=== PATIENT | male | born 1940 | race Hispanic/Latino ===

== ENCOUNTER 2019-07-20 20:47 | Inpatient (IN) | payer MEDICARE ==
[~2019-07-20 20:47] MED LIST: Iopamidol-370 76% 500 ML 1 ML ONE
[2019-07-20 21:09] LABS: #Basophils 0.1 thou/uL (0.0-0.2); #Eosinphils 0.2 thou/uL (0.0-0.7); #Lymphocytes 2.1 thou/uL (1.20-3.40); #Monocytes 0.6 thou/uL (0.11-0.59); %Basophils 0.6 % (0.0-1.0); %Eosinophils 1.8 % (0.0-10.0); %Lymphocytes 23.3 % (21.0-51.0); %Monocytes 7.1 % (0.0-10.0); %Neutrophils 67.2 % (42.0-75.0); Hemoglobin 15.7 g/dL (14.0-18.0); Mean Corpuscular HGB CONC 34.4 g/dL (32.0-36.0); Mean Corpuscular Hemoglobin 33.3 pg (27.0-31.0); Mean Corpuscular Volume 96.8 fL (78.0-98.0); Platelet Count 166 thou/uL (130-400); RBC Distribution Width 11.7 % (11.5-14.5); White Blood Cell (WBC) Count 8.9 thou/uL (4.8-10.8)
[2019-07-20 21:30] LABS: ALT (SGPT) 16 U/L (8-55); AST (SGOT) 14 U/L (5-34); Albumin 3.8 g/dL (3.4-4.8); Alkaline Phosphatase 82 U/L (40-110); Anion Gap 14 mmol/L (10-20); BUN (Urea Nitrogen) 17 mg/dL (8.4-25.7); Bilirubin, Total 0.5 mg/dL (0.2-1.2); Calc. Creatinine Clearance 0 mL/min (70-130); Calcium 9.4 mg/dL (7.8-10.44); Carbon Dioxide 22 mmol/L (23-31); Chloride 102 mmol/L (98-107); Estimated GFR-MDRD 52; Globulin 3.5 g/dL (2.4-3.5); Glucose 318 mg/dL (83-110); Potassium 3.8 mmol/L (3.5-5.1); Protein, Total 7.3 g/dL (5.8-8.1); Sodium 134 mmol/L (136-145)
--- NOTE | 2019-07-20 21:37 | CT ---
CT OF THE BRAIN WITHOUT CONTRAST: 07/20/19 HISTORY: Right sided facial droop and weakness. COMPARISON: None. FINDINGS: No acute hemorrhage or infarct. No midline shift or mass effect. Ventricular size and extra-axial CSF spaces are normal. The calvarium is intact. The paranasal sinuses and mastoids are clear. IMPRESSION: No acute intracranial abnormality. Code: JOSELINE Cho at 8:57 p.m. POS: HOME
[2019-07-20] MEDS ORDERED: Aspirin Chewable 81 MG TAB ONE (22:52)
[2019-07-20] MEDS ORDERED: Labetalol HCl 100 MG/20 ML VIAL SLOW IVP PRN (23:46)
[2019-07-20] MEDS ORDERED: hydrALAZINE 20 MG/ML VIAL SLOW IVP PRN (23:46)
--- NOTE | 2019-07-20 23:51 | PDOC.HHP ---
Hospitalist HPI - History of Present Illness R sided tongue, arm, leg weakness, facial droop History of Present Illness: Patient is a 79 year old male with PMH HTN, DM who presents to ED for R sided facial droop and tongue numbness and weakness as well as R sided weakness in arm and leg. Family called EMS for r sided facial droop and weakness R sided and abnormal gate. last normal around 1300 per ED physician, out of tPA window. history of HTN and DM and PCN allergy. glucose noted abnormal in 300s. BP elevated, 218/120 and improved to 208/118 after given NTG. Stroke protocol activated, CT head without acute findings, given 325 ASA, patient to be admitted for ischemic stroke workup Hospitalist ROS - Review of Systems Constitutional: denies: fever, chills, sweats, weakness, malaise, other Eyes: denies: pain, vision change, conjunctivae inflammation, eyelid inflammation, redness, other ENT: denies: ear pain, ear discharge, nose pain, nose discharge, nose congestion , mouth pain, mouth swelling, throat pain, throat swelling, other Respiratory: denies: cough, dry, shortness of breath, hemoptysis, SOB with excertion, pleuritic pain, sputum, wheezing, other Cardiovascular: denies: chest pain, palpitations, orthopnea, paroxysmal noc. dyspnea, edema, light headedness, other Gastrointestinal: denies: nausea, vomiting, abdominal pain, diarrhea, constipation, melena, hematochezia, other Genitourinary: denies: dysuria, frequency, incontinence, hematuria, retention, other Musculoskeletal: denies: neck pain, shoulder pain, arm pain, back pain, hand pain, leg pain, foot pain, other Skin: denies: rash, lesions, luis, bruising, other Neurological: reports: weakness, numbness, incoordination, change in speech. denies: confusion, seizures All other systems reviewed; all pertinent +/- noted in HPI/Subj Hospitalist History - Past Medical History Other Medical History: DM, HTN - Past Surgical History Past Surgical History: reports: no pertinent history - Family History Family History: reports: cerebrovascular accident - Social History Alcohol: reports: None Drugs: reports: none - Exam General Appearance: NAD, awake alert Eye: PERRL, anicteric sclera ENT: normocephalic atraumatic, no oropharyngeal lesions, moist mucosa Neck: supple, symmetric, no JVD, no thyromegaly, no lymphadenopathy, no carotid bruit Heart: RRR, no murmur, no gallops, no rubs, normal peripheral pulses Respiratory: CTAB, no wheezes, no rales, no ronchi, normal chest expansion, no tachypnea, normal percussion Gastrointestinal: soft, non-tender, non-distended, normal bowel sounds, no palpable masses, no hepatomegaly, no splenomegaly, no bruit Extremities: no cyanosis, no clubbing, no edema Skin: normal turgor, no lesions, no rashes Neurological: facial droop Neurological - other findings: R sided facial droop, arm/lock plater weakness, leg weakness, sensation preserved Musculoskeletal: normal tone, normal strength, no muscle wasting Psychiatric: normal affect, normal behavior, A&O x 3 Hospitalist Results - Labs Result Diagrams: 07/20/19 20:54 07/20/19 20:54 Lab results: WBC 8.9 thou/uL (4.8-10.8) 07/20/19 20:54 Hgb 15.7 g/dL (14.0-18.0) 07/20/19 20:54 Hct 45.5 % (42.0-52.0) 07/20/19 20:54 MCV 96.8 fL (78.0-98.0) 07/20/19 20:54 Plt Count 166 thou/uL (130-400) 07/20/19 20:54 Neutrophils % 67.2 % (42.0-75.0) 07/20/19 20:54 Sodium 134 mmol/L (136-145) L 07/20/19 20:54 Potassium 3.8 mmol/L (3.5-5.1) 07/20/19 20:54 Chloride 102 mmol/L (98-107) 07/20/19 20:54 Carbon Dioxide 22 mmol/L (23-31) L 07/20/19 20:54 BUN 17 mg/dL (8.4-25.7) 07/20/19 20:54 Creatinine 1.33 mg/dL (0.7-1.3) H 07/20/19 20:54 Glucose 318 mg/dL (83-110) H 07/20/19 20:54 Calcium 9.4 mg/dL (7.8-10.44) 07/20/19 20:54 Total Bilirubin 0.5 mg/dL (0.2-1.2) 07/20/19 20:54 AST 14 U/L (5-34) 07/20/19 20:54 ALT 16 U/L (8-55) 07/20/19 20:54 Alkaline Phosphatase 82 U/L (40-110) 07/20/19 20:54 Troponin I 0.023 ng/mL (< 0.028) 07/20/19 20:54 Serum Total Protein 7.3 g/dL (5.8-8.1) 07/20/19 20:54 Albumin 3.8 g/dL (3.4-4.8) 07/20/19 20:54 Additional comment: CXR. CTA results pending Ct head results reviewed VITAL SIGNS ThuJuly 20, 2019 23:38 RISSA Yeh, [facility] BP: 151/91 MAP: 111 Pulse: 65 Resp: 18 Temp: 98.5 (Oral) Pain: 0 O2 sat: 97 on (Room Air) Time: 07/20/2019 23:38. - EKG Interpretation EKG: NSR [address] changes Hospitalist H&P A/P - Plan Plan: Patient is a 79 year old male with PMH HTN, DM who presents to ED for R sided facial droop and tongue numbness and weakness as well as R sided weakness in arm and leg. # R sided facial droop and tongue numbness and weakness as well as R sided weakness in arm and leg - admit to stroke floor with telemetry, monitor for atrial fibrillation - CT results reviewed, follow final CTA recommendations, prelimary per ED normal , MRI brain and echo ordered - ASA, statin - lipid panel, labs in AM - consult neurology, stroke team # DM w/ hyperglycemia - SSI ordered, A1C in AM # HTN - permissive HTN ordered for now # hyponatremia, LISA - mild, follow repeat in AM consider nephrology consult if worsening # DVT, GI ppx
[2019-07-21 01:18] VITALS: BMI 29.7
[2019-07-21 05:07] LABS: Prothrombin Time 12.9 sec (12.0-14.7)
[2019-07-21 05:23] LABS: Cardiac Risk 3.8 (Less than 4.5)
[2019-07-21] MEDS: Insulin Regular 300 UNITS/3 ML VIAL SC PRN ×4 (06:03→21:25)
--- NOTE | 2019-07-21 08:33 | RAD ---
CHEST 1 VIEW: INDICATION: History of stroke alert. COMPARISON: None. FINDINGS: There is a small left pleural effusion. Right lung is clear. Heart size is normal. No pneumothorax is evident. No acute osseous abnormality is evident. IMPRESSION: Tiny left pleural effusion. Recommend continued radiographic followup. POS: BH
[2019-07-21] MEDS: Enoxaparin Sodium 40 MG/0.4 ML SYRINGE SC SCH (08:50)
[2019-07-21] MEDS: Aspirin 81 mg Enteric Coated Tablet PO SCH (08:50)
[2019-07-21] MEDS ORDERED: Prevnar 13-Val Conj/PF 0.5 ML SYRINGE IM ONE (09:00)
--- NOTE | 2019-07-21 10:42 | CT ---
CT ANGIOGRAM OF THE HEAD WITH CONTRAST CT ANGIOGRAN NECK WITH CONTRAST: HISTORY: Facial droop and weakness. COMPARISON: Reference is made to a CT of the brain of the same day. FINDINGS: CT angiogram of the head and neck was performed after the intravenous administration of contrast. Th ree-D rendering was provided. The lung apices are clear. The cervical spine alignment is without acute fracture. Moderate degener ative changes. No cervical adenopathy. VESSELS: RIGHT SIDE: The right vertebral artery is patent. The common carotid artery is patent. There is a focal 60% ridge nosis of the proximal right internal carotid artery for a length of 3 mm with adequate distal periphe ral flow. LEFT SIDE: The left vertebral artery is patent. Left common carotid artery is patent. No hemodynamically signi ficant stenosis of the left internal carotid artery per NASCET criteria. The internal carotid arteries are mildly tortuous indicating chronic hypertension. The basilar artery is patent. The [place] is patent without hemodynamically significant ridge nosis, thrombosis, nor aneurysm formation. IMPRESSION: 1. Intact [place] without hemodynamically significant stenosis, thrombosis, nor aneurysm fo rmation. 2. Focal 60% narrowing of proximal right internal carotid artery for a length of 2 mm with adequate peripheral vascular flow. Dr. Cho notified of the findings via telephone at 10:09 p.m. CODE CR POS: HOME
--- NOTE | 2019-07-21 11:30 | MRI ---
MRI BRAIN WITHOUT CONTRAST: HISTORY: Right-sided facial droop and weakness. FINDINGS: Correlation is made with the previous day's CT scan. There is a focal area of restricted diffusion in the left side of the niall with mild T2 prolongation. No hemorrhage, midline shift, or abnormal extraaxial fluid collections are seen. The ventricular s ize is appropriate and the basilar cisterns patent. There is mild mucosal disease in the paranasal s inuses. IMPRESSION: Acute left pontine infarction. POS: DIANAA
--- NOTE | 2019-07-21 12:53 | CON ---
DATE OF CONSULTATION: 07/21/2019 REASON FOR CONSULTATION: Right-sided weakness and right facial droop. HISTORY OF PRESENT ILLNESS: Mr. Ye is a 79-year-old, French-speaking male with medical history significant for hypertension and diabetes mellitus, who presented to the emergency room with right facial droop, tongue numbness, and weakness of the right upper and lower extremity. The family called the EMS around 1300 hours yesterday. He was out of the tPA window. In the emergency room, his blood pressure was found to be elevated Head CT was done, which did not reveal any acute intracranial pathology. He was given aspirin and admitted for stroke workup. The history was taken with the help of a video staff interpreter. The patient denies nausea, vomiting, headache, chest pain, abdominal pain, loss of vision, vertigo, or dizziness associated with the episode. - Review of Systems Constitutional: denies: fever, chills, sweats, weakness, malaise, other Eyes: denies: pain, vision change, conjunctivae inflammation, eyelid inflammation, redness, other ENT: denies: ear pain, ear discharge, nose pain, nose discharge, nose congestion , mouth pain, mouth swelling, throat pain, throat swelling, other Respiratory: denies: cough, dry, shortness of breath, hemoptysis, SOB with excertion, pleuritic pain, sputum, wheezing, other Cardiovascular: denies: chest pain, palpitations, orthopnea, paroxysmal noc. dyspnea, edema, light headedness, other Gastrointestinal: denies: nausea, vomiting, abdominal pain, diarrhea, constipation, melena, hematochezia, other Genitourinary: denies: dysuria, frequency, incontinence, hematuria, retention, other Musculoskeletal: denies: neck pain, shoulder pain, arm pain, back pain, hand pain, leg pain, foot pain, other Skin: denies: rash, lesions, luis, bruising, other Neurological: reports: weakness, numbness, incoordination, change in speech. denies: confusion, seizures All other systems reviewed; all pertinent +/- noted in HPI/Subj Hospitalist History - Past Medical History Other Medical History: DM, HTN - Past Surgical History Past Surgical History: reports: no pertinent history - Family History Family History: reports: cerebrovascular accident - Social History Alcohol: reports: None Drugs: reports: none MEDICATIONS: Aspirin Lipitor Lovenox Hydralazine Lab results: WBC 8.9 thou/uL (4.8-10.8) 07/20/19 20:54 Hgb 15.7 g/dL (14.0-18.0) 07/20/19 20:54 Hct 45.5 % (42.0-52.0) 07/20/19 20:54 MCV 96.8 fL (78.0-98.0) 07/20/19 20:54 Plt Count 166 thou/uL (130-400) 07/20/19 20:54 Neutrophils % 67.2 % (42.0-75.0) 07/20/19 20:54 Sodium 134 mmol/L (136-145) L 07/20/19 20:54 Potassium 3.8 mmol/L (3.5-5.1) 07/20/19 20:54 Chloride 102 mmol/L (98-107) 07/20/19 20:54 Carbon Dioxide 22 mmol/L (23-31) L 07/20/19 20:54 BUN 17 mg/dL (8.4-25.7) 07/20/19 20:54 Creatinine 1.33 mg/dL (0.7-1.3) H 07/20/19 20:54 Glucose 318 mg/dL (83-110) H 07/20/19 20:54 Calcium 9.4 mg/dL (7.8-10.44) 07/20/19 20:54 Total Bilirubin 0.5 mg/dL (0.2-1.2) 07/20/19 20:54 AST 14 U/L (5-34) 07/20/19 20:54 ALT 16 U/L (8-55) 07/20/19 20:54 Alkaline Phosphatase 82 U/L (40-110) 07/20/19 20:54 Troponin I 0.023 ng/mL (< 0.028) 07/20/19 20:54 Serum Total Protein 7.3 g/dL (5.8-8.1) 07/20/19 20:54 Albumin 3.8 g/dL (3.4-4.8) 07/20/19 20:54 - EKG Interpretation EKG: NSR [address] changes PHYSICAL EXAMINATION: VITAL SIGNS: Blood pressure 150/90, pulse 100, and respiratory rate 18. General Appearance: NAD, awake alert Eye: PERRL, anicteric sclera ENT: normocephalic atraumatic, no oropharyngeal lesions, moist mucosa Neck: supple, symmetric, no JVD, no thyromegaly, no lymphadenopathy, no carotid bruit Heart: RRR, no murmur, no gallops, no rubs, normal peripheral pulses Respiratory: CTAB, no wheezes, no rales, no ronchi, normal chest expansion, no tachypnea, normal percussion Gastrointestinal: soft, non-tender, non-distended, normal bowel sounds, no palpable masses, no hepatomegaly, no splenomegaly, no bruit Extremities: no cyanosis, no clubbing, no edema Skin: normal turgor, no lesions, no rashes NEUROLOGIC: Mental status, the patient is alert and oriented to person, place, and time. Cranial nerves, 2 through 12 intact except dysarthria, right facial droop , and numbness of the tongue on the right side. Motor, muscle bulk and tone are normal. Strength 3/5 in the right upper and lower extremity, 5/5 in the right upper and lower extremity. Cerebellar unable to perform on the left secondary to weakness. Reflexes 2+ bilaterally. Sensory intact. Gait not tested because of the patient's safety reasons. DIAGNOSTIC STUDIES: Data reviewed. I reviewed the labs, which showed hyperglycemia and the labs were essentially unremarkable. Data reviewed. I reviewed the chest x-ray, which was unremarkable. CT of the head did not reveal any acute intracranial pathology. ASSESSMENT AND PLAN: Mr. Ye is a 79-year-old male with medical history significant for hypertension and diabetes mellitus, presented with right facial droop, numbness, and weakness of the right upper and lower extremity. Recommend MRI of the brain to rule out acute intracranial pathology. Neuro checks every 4 hours. Telemetry to monitor for atrial fibrillation. Check fasting lipid profile, hemoglobin A1c, and TSH. Continue aspirin and statin for secondary stroke prevention. Echocardiogram to rule out cardioembolic source. PT/OT/Speech. Continue home medications. Continue medical management per primary team. We will continue to follow. Thank you for the consult. Job ID: [id number] MTDD
--- NOTE | 2019-07-21 16:04 | PDOC.HOSPP ---
- Subjective Encounter Date: 07/21/19 Encounter Time: 15:55 Subjective: f/u for acute L pontine CVA with R hemiparesis receiving ASA/Lipitor. BP labile per nursing. - Objective Vital Signs & Weight: Vital Signs (12 hours) Temp Pulse Pulse Pulse Resp BP BP 07/21/19 15:35 98.7 F 65 17 07/21/19 11:00 98.9 F 67 20 07/21/19 10:43 76 70 177/93 H 183/88 H 07/21/19 10:42 76 70 177/93 H 183/88 H 07/21/19 07:18 98.3 F 66 18 BP Pulse Ox 07/21/19 15:35 177/80 H 95 07/21/19 11:00 183/88 H 95 07/21/19 10:43 07/21/19 10:42 07/21/19 07:18 180/84 H 95 Weight Admit Weight 173 lb 6.4 oz Weight 173 lb 6.4 oz I&O: 07/20/19 07/21/19 07/22/19 06:59 06:59 06:59 Intake Total 100 Output Total 250 325 Balance -250 -225 Result Diagrams: 07/20/19 20:54 07/20/19 20:54 Additional Labs: Accuchecks 07/21/19 07/21/19 07/20/19 10:33 05:33 21:00 POC Glucose 225 H 254 H 325 H Laboratory Tests 07/21/19 04:54 Triglycerides 116 Cholesterol 177 LDL Cholesterol, Calc 108 HDL Cholesterol 46 Radiology Reviewed by me: Yes (MRI brain - L pontine acute infarct) EKG Reviewed by me: Yes (Tele - SR) Hospitalist ROS - Medication Medications: Active Medications Generic Name Dose Route Start Last Admin Trade Name Freq PRN Reason Stop Dose Admin Aspirin 81 mg 07/21/19 09:00 07/21/19 08:50 Ecotrin PO 81 mg DAILY BILLY Administration Enoxaparin Sodium 40 mg 07/21/19 09:00 07/21/19 08:50 Lovenox SC 40 mg 0900 BILLY Administration Insulin Human Regular 0 units 07/20/19 23:46 07/21/19 11:16 Humulin R SC 4 unit .MODERATE SLIDING SC PRN Administration Moderate Correctional Scale Sodium Chloride 10 ml 07/20/19 23:46 07/21/19 08:50 Flush - Normal Saline IVF 10 ml PRN PRN Administration Saline Flush - Exam General Appearance: NAD, awake alert Eye: PERRL, anicteric sclera ENT: normocephalic atraumatic, no oropharyngeal lesions Neck: supple, symmetric, no JVD, no thyromegaly Heart: RRR, no gallops, no rubs, normal peripheral pulses Heart - other findings: S1, S2 Respiratory: CTAB, no wheezes, no rales, no ronchi, normal chest expansion, no tachypnea Gastrointestinal: soft, non-tender, non-distended, normal bowel sounds, no palpable masses Extremities: no cyanosis, no clubbing, no edema Skin: normal turgor, no lesions Neurological - other findings: RUE/LE weakness, dysarthria, R facial droop Musculoskeletal: normal tone, generalized weakness Hosp A/P (1) Acute CVA (cerebrovascular accident) Code(s): I63.9 - CEREBRAL INFARCTION, UNSPECIFIED Status: Acute Plan: L pontine involvement, continue ASA/Lipitor (2) Acute right hemiparesis Code(s): G81.91 - HEMIPLEGIA, UNSPECIFIED AFFECTING RIGHT DOMINANT SIDE Status : Acute Plan: Secondary to #1, see above, PT/OT for mobilization (3) Dysarthria Code(s): R47.1 - DYSARTHRIA AND ANARTHRIA Status: Acute (4) HTN (hypertension) Code(s): I10 - ESSENTIAL (PRIMARY) HYPERTENSION Status: Chronic Qualifiers: Hypertension type: essential hypertension Qualified Code(s): I10 - Essential (primary) hypertension Plan: Start Amlodipine 5mg daily, monitor BP trend and titrate to optimal response (5) Diabetes mellitus type 2, uncontrolled Code(s): E11.65 - TYPE 2 DIABETES MELLITUS WITH HYPERGLYCEMIA Status: Chronic Plan: Uncontrolled, start Metformin 500mg BID, Glipizide 2.5mg Daily, ADA, serial accuchecks - Plan PT/OT, social studies teacher, speech therapy, out of bed/ambulate, DVT proph w/SCDs Continue routine stroke protocol Continue ASA Continue Lipitor Start Metformin/Glipizide Start Amlodipine 5mg daily AM lab: A1C
[2019-07-21] MEDS ORDERED: Amlodipine 5 MG TAB PO SCH (16:15)
[2019-07-21] MEDS: metFORMIN 500 MG TAB PO SCH (17:27)
[2019-07-21] MEDS: Atorvastatin Calcium 40 MG TAB PO SCH (21:19)
[2019-07-21] MEDS: DorzolamidE/Timolol 2%/0.5% Ophth Soln 10 ml Bottle EA EYE SCH (21:20)
[2019-07-21] MEDS: Latanoprost 0.005% Ophth Soln 2.5 ml Bottle EA EYE SCH (21:21)
[2019-07-21] MEDS: Brimonidine Tartrate 0.2% Ophth Soln 5 ml Bottle EA EYE SCH (22:27)
[2019-07-22 04:56] LABS: Hemoglobin A1c 10.8 % (4.0-6.0)
[2019-07-22 05:08] LABS: Anion Gap 14 mmol/L (10-20); BUN (Urea Nitrogen) 15 mg/dL (8.4-25.7); Calc. Creatinine Clearance 67 mL/min (70-130); Calcium 8.7 mg/dL (7.8-10.44); Carbon Dioxide 21 mmol/L (23-31); Chloride 104 mmol/L (98-107); Estimated GFR-MDRD 71; Glucose 200 mg/dL (83-110); Potassium 3.5 mmol/L (3.5-5.1); Sodium 135 mmol/L (136-145)
[2019-07-22] MEDS: Brimonidine Tartrate 0.2% Ophth Soln 5 ml Bottle EA EYE SCH ×3 (05:27→20:53)
[2019-07-22] MEDS: Insulin Regular 300 UNITS/3 ML VIAL SC PRN ×3 (05:27→17:43)
[2019-07-22] MEDS: DorzolamidE/Timolol 2%/0.5% Ophth Soln 10 ml Bottle EA EYE SCH ×2 (08:39→20:52)
[2019-07-22] MEDS: Aspirin 81 mg Enteric Coated Tablet PO SCH (08:41)
[2019-07-22] MEDS: metFORMIN 500 MG TAB PO SCH ×2 (08:42→17:43)
[2019-07-22] MEDS: Amlodipine 5 MG TAB PO SCH (08:42)
[2019-07-22] MEDS: Enoxaparin Sodium 40 MG/0.4 ML SYRINGE SC SCH (08:43)
--- NOTE | 2019-07-22 13:39 | PDOC.HOSPP ---
- Subjective Encounter Date: 07/22/19 Subjective: NEUROLOGY PROGRESS NOTE Right sided weakness worse today. Repeat HCT ordered - Objective Vital Signs & Weight: Vital Signs (12 hours) Temp Pulse Pulse Resp BP BP Pulse Ox 07/22/19 11:27 98.6 F 62 22 H 151/78 H 96 07/22/19 10:07 62 160/75 H 07/22/19 08:42 68 07/22/19 08:00 98.7 F 60 17 139/69 94 L 07/22/19 04:29 98.6 F 60 18 127/68 96 Weight Admit Weight 173 lb 6.4 oz Weight 173 lb 6.4 oz I&O: 07/21/19 07/22/19 07/23/19 06:59 06:59 06:59 Intake Total 400 674 Output Total 250 575 450 Balance -250 -175 224 Result Diagrams: 07/20/19 20:54 07/22/19 04:27 Additional Labs: Accuchecks 07/22/19 07/22/19 07/21/19 10:53 04:53 20:16 POC Glucose 246 H 203 H 218 H 07/21/19 16:28 POC Glucose 272 H Radiology Reviewed by me: Yes EKG Reviewed by me: Yes Hospitalist ROS - Review of Systems Constitutional: denies: fever, chills, sweats, weakness, malaise, other Eyes: denies: pain, vision change, conjunctivae inflammation, eyelid inflammation, redness, other ENT: denies: ear pain, ear discharge, nose pain, nose discharge, nose congestion , mouth pain, mouth swelling, throat pain, throat swelling, other Genitourinary: denies: dysuria, frequency, incontinence, hematuria, retention, other Neurological: reports: weakness, numbness - Medication Medications: Active Medications Generic Name Dose Route Start Last Admin Trade Name Freq PRN Reason Stop Dose Admin Amlodipine Besylate 5 mg 07/22/19 09:00 07/22/19 08:42 Norvasc PO 5 mg DAILY BILLY Administration Aspirin 81 mg 07/21/19 09:00 07/22/19 08:41 Ecotrin PO 81 mg DAILY BILLY Administration Atorvastatin Calcium 40 mg 07/21/19 21:00 07/21/19 21:19 Lipitor PO 40 mg HS BILLY Administration Brimonidine Tartrate 1 drop 07/21/19 22:00 07/22/19 05:27 Alphagan 0.2% Ophth Soln EA EYE 1 drop Q8HR BILLY Administration Dorzolamide/Timolol 1 drop 07/21/19 21:00 07/22/19 08:39 Cosopt 2-0.5% Ophth Soln EA EYE 1 drop BID BILLY Administration Enoxaparin Sodium 40 mg 07/21/19 09:00 07/22/19 08:43 Lovenox SC 40 mg 0900 BILLY Administration Glipizide 2.5 mg 07/22/19 07:30 07/22/19 08:41 Glucotrol Xl PO 2.5 mg DAILY-AC BILLY Administration Insulin Human Regular 0 units 07/20/19 23:46 07/22/19 12:02 Humulin R SC 4 unit .MODERATE SLIDING SC PRN Administration Moderate Correctional Scale Latanoprost 1 drop 07/21/19 21:00 07/21/19 21:21 Xalatan 0.005% Ophth Soln EA EYE 1 drop HS BILLY Administration Metformin HCl 500 mg 07/21/19 17:00 07/22/19 08:42 Glucophage PO 500 mg BID-WM BILLY Administration Sodium Chloride 10 ml 07/20/19 23:46 07/22/19 08:44 Flush - Normal Saline IVF 10 ml PRN PRN Administration Saline Flush - Exam General Appearance: awake alert Eye: PERRL, anicteric sclera ENT: normocephalic atraumatic, no oropharyngeal lesions Heart: RRR Respiratory: CTAB Gastrointestinal: soft Extremities: no cyanosis, no clubbing, no edema Skin: normal turgor, no lesions, no rashes Neurological: facial droop (Right facial droop and right hemiplegia), hemiplegia Hosp A/P (1) Acute CVA (cerebrovascular accident) Code(s): I63.9 - CEREBRAL INFARCTION, UNSPECIFIED Status: Acute (2) Acute right hemiparesis Code(s): G81.91 - HEMIPLEGIA, UNSPECIFIED AFFECTING RIGHT DOMINANT SIDE Status : Acute (3) Dysarthria Code(s): R47.1 - DYSARTHRIA AND ANARTHRIA Status: Acute (4) Diabetes mellitus type 2, uncontrolled Code(s): E11.65 - TYPE 2 DIABETES MELLITUS WITH HYPERGLYCEMIA Status: Chronic (5) HTN (hypertension) Code(s): I10 - ESSENTIAL (PRIMARY) HYPERTENSION Status: Chronic Qualifiers: Hypertension type: essential hypertension Qualified Code(s): I10 - Essential (primary) hypertension - Plan PT/OT, speech therapy 79 year old with acute stroke. Right sided weakness worse today. Repeat HCT ordered MRI Brain showed left acute pontine infarct. Neurochecks every 4 hours. Stat HCT if neurological status declines. Echocardiography did not show any thrombus or PFO. Continue aspirin and statin for secondary stroke prevention. Telemetry Continue home medications. Strict control of BP and BG. Continue medical management per primary team. PT/OT/Speech
--- NOTE | 2019-07-22 14:43 | PDOC.HOSPP ---
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 BP and DM II previously uncontrolled initiated on Metformin/Glipizide/Amlodipine. - Objective Vital Signs & Weight: Vital Signs (12 hours) Temp Pulse Pulse Resp BP BP Pulse Ox 07/22/19 11:27 98.6 F 62 22 H 151/78 H 96 07/22/19 10:07 62 160/75 H 07/22/19 08:42 68 07/22/19 08:00 98.7 F 60 17 139/69 94 L 07/22/19 04:29 98.6 F 60 18 127/68 96 Weight Admit Weight 173 lb 6.4 oz Weight 173 lb 6.4 oz I&O: 07/21/19 07/22/19 07/23/19 06:59 06:59 06:59 Intake Total 400 674 Output Total 250 575 450 Balance -250 -175 224 Result Diagrams: 07/20/19 20:54 07/22/19 04:27 Additional Labs: Accuchecks 07/22/19 07/22/19 07/21/19 10:53 04:53 20:16 POC Glucose 246 H 203 H 218 H 07/21/19 16:28 POC Glucose 272 H Laboratory Tests 07/21/19 07/22/19 04:54 04:27 Hemoglobin A1c 10.8 H Triglycerides 116 Cholesterol 177 LDL Cholesterol, Calc 108 HDL Cholesterol 46 Radiology Reviewed by me: Yes (CT brain - L pontine CVA ) EKG Reviewed by me: Yes (Tele - SR) Hospitalist ROS - Medication Medications: Active Medications Generic Name Dose Route Start Last Admin Trade Name Freq PRN Reason Stop Dose Admin Amlodipine Besylate 5 mg 07/22/19 09:00 07/22/19 08:42 Norvasc PO 5 mg DAILY BILLY Administration Aspirin 81 mg 07/21/19 09:00 07/22/19 08:41 Ecotrin PO 81 mg DAILY BILLY Administration Atorvastatin Calcium 40 mg 07/21/19 21:00 07/21/19 21:19 Lipitor PO 40 mg HS BILLY Administration Brimonidine Tartrate 1 drop 07/21/19 22:00 07/22/19 14:00 Alphagan 0.2% Ophth Soln EA EYE 1 drop Q8HR BILLY Administration Dorzolamide/Timolol 1 drop 07/21/19 21:00 07/22/19 08:39 Cosopt 2-0.5% Ophth Soln EA EYE 1 drop BID BILLY Administration Enoxaparin Sodium 40 mg 07/21/19 09:00 07/22/19 08:43 Lovenox SC 40 mg 0900 BILLY Administration Glipizide 2.5 mg 07/22/19 07:30 07/22/19 08:41 Glucotrol Xl PO 2.5 mg DAILY-AC BILLY Administration Insulin Human Regular 0 units 07/20/19 23:46 07/22/19 12:02 Humulin R SC 4 unit .MODERATE SLIDING SC PRN Administration Moderate Correctional Scale Latanoprost 1 drop 07/21/19 21:00 07/21/19 21:21 Xalatan 0.005% Ophth Soln EA EYE 1 drop HS BILLY Administration Sodium Chloride 10 ml 07/20/19 23:46 07/22/19 08:44 Flush - Normal Saline IVF 10 ml PRN PRN Administration Saline Flush - Exam General Appearance: NAD, awake alert Eye: PERRL, anicteric sclera ENT: normocephalic atraumatic, no oropharyngeal lesions Neck: supple, symmetric, no JVD Heart: RRR, no murmur, no gallops, no rubs, normal peripheral pulses Heart - other findings: S1, S2 Respiratory: CTAB, no wheezes, no rales, no ronchi, normal chest expansion, no tachypnea Gastrointestinal: soft, non-tender, non-distended, normal bowel sounds, no palpable masses Extremities: no cyanosis, no clubbing, no edema Skin: normal turgor, no lesions Neurological - other findings: R hemiparesis, R facial asymmetry Psychiatric: normal affect, A&O x 3 Hosp A/P (1) Acute CVA (cerebrovascular accident) Code(s): I63.9 - CEREBRAL INFARCTION, UNSPECIFIED Status: Acute Plan: L pontine distribution, continue ASA/Lipitor, PT/OT for mobilization, SNF/Rehab options (2) Acute right hemiparesis Code(s): G81.91 - HEMIPLEGIA, UNSPECIFIED AFFECTING RIGHT DOMINANT SIDE Status : Acute Plan: Secondary to #1, see above (3) Dysarthria Code(s): R47.1 - DYSARTHRIA AND ANARTHRIA Status: Acute (4) HTN (hypertension) Code(s): I10 - ESSENTIAL (PRIMARY) HYPERTENSION Status: Chronic Qualifiers: Hypertension type: essential hypertension Qualified Code(s): I10 - Essential (primary) hypertension Plan: Continue Amlodipine 5mg daily, titrate to clinical response (5) Diabetes mellitus type 2, uncontrolled Code(s): E11.65 - TYPE 2 DIABETES MELLITUS WITH HYPERGLYCEMIA Status: Chronic Plan: Increase Metformin 1000mg BID, continue Glipizide 2.5mg daily - Plan PT/OT, psychiatric social worker supervisor, speech therapy, DVT proph w/SCDs Continue routine stroke protocol Continue ASA Continue Lipitor Increase Metformin 1000mg BID/Glipizide 2.5mg Daily Continue Amlodipine 5mg daily 1800 Jose ADA CM for Rehab/SNF options
--- NOTE | 2019-07-22 15:21 | CT ---
CT BRAIN WITHOUT CONTRAST: HISTORY: Acute left pontine infarction. Right-sided facial droop and weakness. Increased right-sided weaknes s. COMPARISON: 07/20/2019. CORRELATION: MRI 07/21/2019. FINDINGS: There is a focal area of decreased density in the left side of the niall which is new since the last C T scan and corresponds to the focal area of restricted diffusion in the MRI, consistent with acute in farction. No evidence of transcortical infarction, hemorrhage, midline shift, or abnormal extraaxial fluid collections is seen. The ventricular size is stable and the basilar cisterns are patent. The bony calvarium is intact. IMPRESSION: No evidence of hemorrhagic transformation of the acute left pontine infarction. POS: DIANAA
[2019-07-22] MEDS: Latanoprost 0.005% Ophth Soln 2.5 ml Bottle EA EYE SCH (20:52)
[2019-07-22] MEDS: Atorvastatin Calcium 40 MG TAB PO SCH (20:52)
[2019-07-23] MEDS: Insulin Regular 300 UNITS/3 ML VIAL SC PRN ×3 (05:50→18:07)
[2019-07-23] MEDS: Brimonidine Tartrate 0.2% Ophth Soln 5 ml Bottle EA EYE SCH ×3 (05:51→23:19)
[2019-07-23] MEDS: metFORMIN 500 MG TAB PO SCH ×2 (09:51→18:07)
[2019-07-23] MEDS: Enoxaparin Sodium 40 MG/0.4 ML SYRINGE SC SCH (09:54)
[2019-07-23] MEDS: Aspirin 81 mg Enteric Coated Tablet PO SCH (09:54)
[2019-07-23] MEDS: Amlodipine 5 MG TAB PO SCH (09:54)
[2019-07-23] MEDS: DorzolamidE/Timolol 2%/0.5% Ophth Soln 10 ml Bottle EA EYE SCH ×2 (09:55→21:32)
[2019-07-23] MEDS ORDERED: Acetaminophen 650 MG Suppository PR PRN (14:34)
[2019-07-23] MEDS ORDERED: hydrALAZINE 20 MG/ML VIAL SLOW IVP PRN ×2 (14:34→17:26)
[2019-07-23] MEDS: Acetaminophen 325 MG TAB PO PRN ×2 (15:30→19:39)
--- NOTE | 2019-07-23 17:11 | PDOC.HOSPP ---
- Subjective Encounter Date: 07/23/19 Encounter Time: 15:30 Subjective: Patient seen and examined for Acute CVA. No new focal deficits. No new complaints. No overnight events - Objective Vital Signs & Weight: Vital Signs (12 hours) Temp Pulse Resp BP Pulse Ox 07/23/19 15:45 99.7 F H 79 17 197/89 H 94 L 07/23/19 11:32 98.8 F 73 16 197/89 H 94 L 07/23/19 08:00 98.8 F 69 18 150/78 H 94 L Weight Admit Weight 173 lb 6.4 oz Weight 173 lb 6.4 oz I&O: 07/22/19 07/23/19 07/24/19 06:59 06:59 06:59 Intake Total 400 1091 358 Output Total 575 1075 Balance -175 16 358 Result Diagrams: 07/20/19 20:54 07/22/19 04:27 Additional Labs: Accuchecks 07/23/19 07/23/19 07/23/19 16:47 10:48 05:27 POC Glucose 243 H 225 H 207 H 07/22/19 19:54 POC Glucose 176 H Laboratory Tests 07/22/19 04:27 Hemoglobin A1c 10.8 H EKG Reviewed by me: Yes (Tele SR) Hospitalist ROS - Review of Systems Respiratory: denies: cough, dry, shortness of breath, hemoptysis, SOB with excertion, pleuritic pain, sputum, wheezing, other Cardiovascular: denies: chest pain, palpitations, orthopnea, paroxysmal noc. dyspnea, edema, light headedness, other - Medication Medications: Active Medications Generic Name Dose Route Start Last Admin Trade Name Freq PRN Reason Stop Dose Admin Acetaminophen 650 mg 07/23/19 15:26 07/23/19 15:30 Tylenol PO 650 mg Q4H PRN Administration Headache/Fever or Pain Aspirin 81 mg 07/21/19 09:00 07/23/19 09:54 Ecotrin PO 81 mg DAILY BILLY Administration Atorvastatin Calcium 40 mg 07/21/19 21:00 07/22/19 20:52 Lipitor PO 40 mg HS BILLY Administration Brimonidine Tartrate 1 drop 07/21/19 22:00 07/23/19 15:30 Alphagan 0.2% Ophth Soln EA EYE 1 drop Q8HR BILLY Administration Dorzolamide/Timolol 1 drop 07/21/19 21:00 07/23/19 09:55 Cosopt 2-0.5% Ophth Soln EA EYE 1 drop BID BILLY Administration Enoxaparin Sodium 40 mg 07/21/19 09:00 07/23/19 09:54 Lovenox SC 40 mg 0900 BILLY Administration Glipizide 2.5 mg 07/22/19 07:30 07/23/19 06:48 Glucotrol Xl PO 2.5 mg DAILY-AC BILLY Administration Insulin Human Regular 0 units 07/20/19 23:46 07/23/19 12:24 Humulin R SC 4 unit .MODERATE SLIDING SC PRN Administration Moderate Correctional Scale Latanoprost 1 drop 07/21/19 21:00 07/22/19 20:52 Xalatan 0.005% Ophth Soln EA EYE 1 drop HS BILLY Administration Metformin HCl 1,000 mg 07/22/19 17:00 07/23/19 09:51 Glucophage PO 1,000 mg BID-WM BILLY Administration Sodium Chloride 10 ml 07/20/19 23:46 07/22/19 08:44 Flush - Normal Saline IVF 10 ml PRN PRN Administration Saline Flush - Exam General Appearance: NAD Neck: supple, no JVD Heart: no gallops, no rubs Respiratory: no wheezes, no rales Gastrointestinal: soft, non-tender, normal bowel sounds Extremities: no cyanosis, no clubbing Neurological: no new deficit Psychiatric: normal affect, A&O x 3 Hosp A/P - Plan DVT proph w/SCDs Acute left pontine CVA DM2 - uncontrolled HTN - uncontrolled HLD Hyponatremia Rt ICA 60% stenosis Swallow dysfunction Glaucoma PLAN: Cont ASA Cont Statins Cont Metformin Change Glipizide to 5 mg BID Add NPH Add Coreg/Hydralazine Increase Amlodipine to 5 mg BID
[2019-07-23] MEDS ORDERED: Carvedilol 3.125 MG TAB PO SCH (17:30)
[2019-07-23] MEDS ORDERED: hydrALAZINE 25 MG TAB PO SCH ×3 (17:30→21:00)
[2019-07-23] MEDS ORDERED: cloNIDine 0.1 MG TAB PO PRN (17:32)
[2019-07-23] MEDS ORDERED: Labetalol HCl 100 MG/20 ML VIAL SLOW IVP PRN (17:32)
[2019-07-23] MEDS ORDERED: Amlodipine 5 MG TAB PO SCH (21:00)
[2019-07-23] MEDS: Atorvastatin Calcium 40 MG TAB PO SCH (21:33)
[2019-07-23] MEDS: Latanoprost 0.005% Ophth Soln 2.5 ml Bottle EA EYE SCH (21:33)
[2019-07-23] MEDS: NPH, Human Insulin Isophane 300 UNIT/3 ML VIAL SC SCH (21:34)
[2019-07-24] MEDS: Brimonidine Tartrate 0.2% Ophth Soln 5 ml Bottle EA EYE SCH ×2 (06:28→13:15)
[2019-07-24] MEDS: Insulin Regular 300 UNITS/3 ML VIAL SC PRN ×2 (06:29→11:41)
[2019-07-24] MEDS ORDERED: glipiZIDE 5 MG TAB PO SCH (07:30)
[2019-07-24 07:57] VITALS: TEMP 98
[2019-07-24] MEDS ORDERED: Carvedilol 3.125 MG TAB PO SCH ×2 (08:00)
[2019-07-24] MEDS ORDERED: Amlodipine 5 MG TAB PO SCH (09:00)
[2019-07-24] MEDS: DorzolamidE/Timolol 2%/0.5% Ophth Soln 10 ml Bottle EA EYE SCH (09:00)
[2019-07-24] MEDS ORDERED: Aspirin 325 mg Enteric Coated Tablet PO SCH (09:00)
[2019-07-24] MEDS: metFORMIN 500 MG TAB PO SCH (09:03)
[2019-07-24] MEDS: Enoxaparin Sodium 40 MG/0.4 ML SYRINGE SC SCH (09:05)
[2019-07-24] MEDS: NPH, Human Insulin Isophane 300 UNIT/3 ML VIAL SC SCH (09:06)
[2019-07-24 11:32] VITALS: BP 120/82
--- NOTE | 2019-07-25 10:50 | DIS ---
DATE OF ADMISSION: 07/21/2019 DATE OF DISCHARGE: 07/24/2019 DISCHARGE DISPOSITION: Inpatient rehab. DISCHARGE MEDICATIONS: 1. Aspirin 325 mg daily. 2. Lipitor 40 mg at bedtime. 3. Carvedilol 3.125 mg b.i.d. 4. Amlodipine 5 mg daily. 5. Clonidine as needed. 6. Glipizide 5 mg b.i.d. 7. Regular insulin sliding scale. 8. NPH 10 units b.i.d. 9. Metformin 1000 mg b.i.d. 10. Tylenol as needed. 11. The patient was advised to resume his glaucoma eye drops. The patient was seen and examined on the day of discharge. Denies any new complaints. The patient continues to have right-sided weakness. His blood pressure on the day of discharge is 130 systolic. BRIEF HOSPITAL COURSE: The patient is a 79-year-old male with hypertension, diabetes mellitus type 2, presented to the emergency room with right-sided weakness along with facial droop. His workup was consistent with acute left pontine CVA. He was found to have uncontrolled diabetes and blood pressure. His hemoglobin A1c was 10.8. His fasting lipid profile showed LDL of 108 with cholesterol of 177, triglyceride of 116, HDL of 46. Echocardiogram showed left ventricular ejection fraction of 60% to 65% with grade 1 of 3 diastolic dysfunction, mild mitral regurgitation, mild tricuspid regurgitation. CT angiogram of the head was negative for significant stenosis. CT angiogram of the neck showed focal 60% narrowing of the proximal internal carotid artery. Lifestyle modification was emphasized. He will be discharged to inpatient rehabilitation for further rehabilitation. FINAL DIAGNOSES: 1. Acute left pontine cerebrovascular accident, causing right-sided weakness. 2. 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 3. Uncontrolled diabetes mellitus type 2 with hemoglobin A1c of 10.8. 4. Uncontrolled hypertension. 5. Hyperlipidemia. 6. Hyponatremia. 7. Swallow dysfunction. 8. Glaucoma. TIME SPENT: Time coordinating the discharge of this patient was 32 minutes. The patient understands the side effects of the medications. Job ID: [id number]
== END 2019-07-24 13:33 | DRG 65 ==
LOC: ERS 20:47 → 2SE 07-21 00:49 → OBSVTOIN 07-21 03:40
PROVIDERS: ADMIT Internal Medicine; ATTEND Family Medicine
DX: I63.89 Other cerebral infarction (principal); G81.91 Hemiplegia, unspecified affecting right dominant side; E87.1 Hypo-osmolality and hyponatremia; N17.9 Acute kidney failure, unspecified; I65.21 Occlusion and stenosis of right carotid artery; I10 Essential (primary) hypertension; R29.810 Facial weakness; I08.1 Rheumatic disorders of both mitral and tricuspid valves; E78.5 Hyperlipidemia, unspecified; R47.1 Dysarthria and anarthria; E11.65 Type 2 diabetes mellitus with hyperglycemia; H40.9 Unspecified glaucoma; R13.10 Dysphagia, unspecified; Z79.4 Long term (current) use of insulin; Z88.0 Allergy status to penicillin
CPT/HCPCS: 36415; 36416; 70450; 70496; 70498; 70551; 71045; 80048; 80053; 80061; 83036; 84484; 85025; 85610; 90471; 90670; 93005; 93306; G0009; J1650; J1815; Q9967

== ENCOUNTER 2019-11-16 13:30 | Outpatient (CLI) | payer OTHER ==
--- NOTE | 2019-11-16 14:48 | ULT ---
Exam: Right upper extremity arterial ultrasound with Doppler HISTORY: Evaluate for vascular occlusion COMPARISON: None TECHNIQUE: Grayscale, color flow, Doppler imaging and spectral wave muscle the right upper extremity arterial system FINDINGS/IMPRESSION: There is patency and triphasic flow in the subclavian artery, axillary artery. There is patency and b iphasic flow in the brachial artery, radial artery and ulnar artery. Common carotid artery is patent IMPRESSION: no evidence of thrombus or occlusion in the right upper extremity arterial system Transcribed Date/Time: 11/16/2019 2:59 PM
== END 2019-11-16 13:31 | disposition home or self-care (01) ==
LOC: ULT 13:30
PROVIDERS: ATTEND Psychiatry & Neurology Neurology
DX: I66.29 Occlusion and stenosis of unspecified posterior cerebral artery (principal)
CPT/HCPCS: 93923

== ENCOUNTER 2020-09-11 09:47 | Outpatient (CLI) | payer MEDICARE | END 2020-09-11 09:48 | disposition home or self-care (01) | LOC: BICULT 09:47 | PROVIDERS: ATTEND Psychiatry & Neurology Neurology | DX: I66.29 Occlusion and stenosis of unspecified posterior cerebral artery (principal); I65.21 Occlusion and stenosis of right carotid artery | CPT/HCPCS: 93880 ==